=== PATIENT | female | born 1960 | race Two or more races ===

== ENCOUNTER 2020-09-02 07:00 | Day surgery (SDC) | payer OTHER ==
[~2020-09-02 07:00] MED LIST: DULCOLAX5 MG PO
[2020-09-02] MEDS ORDERED: NEURONTIN300 MG PO (10:59)
[2020-09-02] MEDS ORDERED: COLACE100 MG PO (10:59)
[2020-09-02] MEDS ORDERED: PERCOCET 5-3251 EACH PO (10:59)
== END 2020-09-02 22:40 | disposition home or self-care (01) ==
LOC: CIR.AMB 07:00
PROVIDERS: ATTEND Surgery
DX: K64.4 Residual hemorrhoidal skin tags (principal); Z20.828 Contact with and (suspected) exposure to other viral communicable diseases

== ENCOUNTER 2020-09-08 08:34 | Emergency (ER) | payer OTHER ==
[~2020-09-08] VITALS: Ht 165.1 cm; Wt 72.6 kg
[~2020-09-08 08:34] MED LIST changes: +COLACE100 MG PO; +NEURONTIN300 MG PO; +PERCOCET 5-3251 EACH PO
== END 2020-09-08 13:36 | disposition home or self-care (01) ==
LOC: ER 08:34
DX: G89.18 Other acute postprocedural pain (principal); K62.89 Other specified diseases of anus and rectum